=== PATIENT | female | born 2005 | race Caucasian/White ===

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

== ENCOUNTER 2023-05-28 07:25 | Emergency (ER) | payer MEDICAID ==
[~2023-05-28] VITALS: Ht 160 cm; Wt 49.0 kg
[~2023-05-28 07:25] MED LIST: CIPRO500 MG PO; PHENERGAN25 M3 PO
[2023-05-28 08:06] LABS: BILIRUBIN Negative (Negative); BLOOD 2+ (Negative); CLARITY Cloudy (Clear); COLOR Yellow (Yellow); GLUCOSE Negative (Negative); KETONE Negative (Negative); LEUKO ESTERASE 3+ (Negative); NITRITE Positive (Negative); PH 5.5 (4.5-8.0); UROBILINOGEN 0.2 E.U./dl (0.0-1.0)
[2023-05-28 08:24] LABS: RBC 31-40 rbc/hpf (0-2)
[2023-05-28 08:25] LABS: BACTERIA 2+; WBC TNTC wbc/hpf (0-5)
[2023-05-28 08:43] LABS: BASO # 0.1 10*3/uL (0.0-0.1); BASO % 0.5 % (0.0-1.0); EOS # 0.1 10*3/uL (0.0-0.4); EOS % 0.7 % (1.0-4.0); HEMATOCRIT 35.3 % (37.0-47.0); LYMPH # 1.1 10*3/uL (1.3-4.4); LYMPH % 7.4 % (27.0-41.0); MEAN CELL VOLUME 89.1 fl (81.0-99.0); MEAN CORPUSCULAR HGB 30.3 pg (27.0-31.0); MEAN PLATELET VOLUME 9.3 fl (9.6-12.3); NEUT # 12.1 10*3/uL (2.3-7.9); PLATELET COUNT AUTOMATED 264 10*3/uL (130-400); RED BLOOD COUNT 3.96 10*6/uL (4.10-5.10); RED CELL DISTRI WIDTH 12.8 % (0-14.5); WHITE BLOOD COUNT 14.4 10*3/uL (4.8-10.8)
[2023-05-28 09:04] LABS: ALKALINE PHOSPHATASE 58 U/L (46-116); BUN 7 mg/dl (9-23); CHLORIDE 110 mmol/L (98-107); POTASSIUM 3.1 mmol/L (3.4-5.1); TOTAL PROTEIN 6.7 gm/dL (6.0-8.0)
[2023-05-28 09:07] LABS: SGPT/ALT < 7 U/L (10-49)
[2023-05-28] MEDS ORDERED: ONDANSETRON4 MG SL (10:16)
[2023-05-28] MEDS ORDERED: SENNA PLUS 8.61 EACH PO (10:16)
[2023-05-28] MEDS ORDERED: CEFDINIR300 MG PO (10:27)
== END 2023-05-28 10:24 | disposition home or self-care (01) ==
LOC: ED 07:25
PROVIDERS: Family Medicine
DX: N12 Tubulo-interstitial nephritis, not specified as acute or chronic (principal); K59.00 Constipation, unspecified; R10.9 Unspecified abdominal pain; E87.6 Hypokalemia; R11.0 Nausea